=== PATIENT | female | born 1950 | race Caucasian/White ===

== ENCOUNTER 2020-12-28 03:25 | Inpatient (IN) | payer BC, MEDICAID, MEDICARE ==
[~2020-12-28] VITALS: Ht 170.2 cm; Wt 73.1 kg
[2020-12-28 06:17] LABS: Basophils # (auto) 0 10 ^3/uL (0-0.2); Basophils % (auto) 0.6 % (0.0-2.0); Eosinophils # (auto) 0.2 10 ^3/uL (0-0.8); Eosinophils % (auto) 2.8 % (0.0-7.0); Hematocrit 36.1 % (36.0-46.0); Hemoglobin 12.6 g/dL (12.2-16.2); Lymphocytes # (auto) 0.3 10 ^3/uL (0.4-5.4); Lymphocytes % (auto) 5.6 % (10.0-50.0); Mean Corpuscular Hemoglobin 34.8 pg (28.0-32.0); Mean Corpuscular Hgb Conc. 34.9 g/dL (32.0-36.0); Mean Corpuscular Volume 99.9 fL (80.0-100.0); Monocytes # (auto) 0.3 10 ^3/uL (0-1.3); Monocytes % (auto) 4.9 % (0.0-12.0); Neutrophils # (auto) 5.2 10 ^3/uL (1.6-8.6); Neutrophils % (auto) 86.1 % (37.0-80.0); Red Blood Cells 3.61 10^6/uL (4.0-5.20); Red Cell Distribution Width 13.5 % (11.8-14.3)
[2020-12-28 06:28] LABS: INR 0.99 (0.9-1.15)
[2020-12-28 06:34] LABS: Albumin 3.5 g/dL (3.4-5.0); BUN/Creatinine Ratio 26.4; Bilirubin, Total 0.3 mg/dL (0.2-1.0); Calcium 8.5 mg/dL (8.5-10.1); Magnesium 2.5 mg/dL (1.6-2.6); Total Protein 6.6 g/dL (6.4-8.2)
[2020-12-28] MEDS ORDERED: ONDANSETRON HCL 4 MG/2 ML VIAL IV ONE (06:45)
[2020-12-28] MEDS ORDERED: fentaNYL CITRATE 100 MCG/2 ML VL IV ONE (06:45)
[2020-12-28] MEDS ORDERED: SODIUM CHLORIDE 0.9% 1,000 ML IV ONE (07:00)
[2020-12-28] MEDS: SODIUM CHLORIDE 0.9% 1,000 ML IV SCH ×2 (09:30→19:30)
[2020-12-28] MEDS ORDERED: LACTULOSE 20Gm/30ML SOLN PO PRN (09:30)
[2020-12-28] MEDS ORDERED: ACETAMINOPHEN 500 MG TAB PO PRN (09:30)
[2020-12-28] MEDS ORDERED: TEMAZEPAM 15 MG CAP PO PRN (09:30)
[2020-12-28] MEDS ORDERED: PROMETHAZINE HCL 25 MG/ML 1ML IV PRN (09:30)
[2020-12-28] MEDS: FAMOTIDINE 20 MG TAB PO SCH (10:00)
[2020-12-28] MEDS: traMADol HCL 50 MG TAB PO PRN ×2 (10:35→21:41)
[2020-12-28 10:59] LABS: Urine Bacteria NONE SEEN /hpf (None Seen); Urine Blood Negative /uL (Negative); Urine Mucus FEW (None Seen); Urine Specific Gravity 1.021 (1.001-1.035); Urine WBC 3 /hpf (0 - 5)
[2020-12-28 20:00] VITALS: BP 153/90
[2020-12-28 22:00] VITALS: BP 153/90
[2020-12-29] VITALS (14 sets, daily range): BP systolic 106–163; BP diastolic 55–96
[2020-12-29] MEDS: SODIUM CHLORIDE 0.9% 1,000 ML IV SCH ×2 (01:04→15:03)
[2020-12-29] MEDS: traMADol HCL 50 MG TAB PO PRN (04:16)
[2020-12-29] MEDS ORDERED: ceFAZolin 1GM/50ML 100 ML IV ONE (08:10)
[2020-12-29] MEDS ORDERED: BUPIVACAINE 0.5% MPF INJ 30ML SDV IJ ONE (08:55)
[2020-12-29] MEDS ORDERED: MORPHINE SULF PF 2 MG/2 ML SYRG ONE (09:09)
[2020-12-29] MEDS ORDERED: ONDANSETRON HCL 4 MG/2 ML VIAL ONE (09:09)
[2020-12-29] MEDS ORDERED: SODIUM CHLORIDE LOCK 10 ML ONE (09:09)
[2020-12-29] MEDS ORDERED: MIDAZOLAM HCL 2MG/2ML 2ml VIAL (1mg/ml) ONE (09:09)
[2020-12-29] MEDS ORDERED: PROPOFOL 10 MG/ML 20 ML IV ONE (09:09)
[2020-12-29] MEDS ORDERED: fentaNYL CITRATE 100 MCG/2 ML VL ONE (09:09)
[2020-12-29] MEDS ORDERED: DexAMETHasone SOD PHOS 10MG/1ML VIAL INJ ONE (09:09)
[2020-12-29] MEDS ORDERED: BUPIVACAINE 0.5% P/F INJ 10 ML VIAL ONE (09:14)
[2020-12-29] MEDS ORDERED: BUPIVACAINE/DEXTROSE MPF 0.75% 2 ML AMP IT ONE (09:37)
[2020-12-29] MEDS: FAMOTIDINE 20 MG TAB PO SCH (10:00)
[2020-12-29] MEDS ORDERED: hydrALAZINE HCL 20 MG/ML VL IV PRN (12:15)
[2020-12-29] MEDS ORDERED: HYDROmorphone HCL 2 MG/ML VL IV PRN (13:30)
[2020-12-29] MEDS ORDERED: NALOXONE HCL 0.4 MG/ML VIAL IV PRN (13:30)
[2020-12-29] MEDS ORDERED: MORPHINE SULFATE 4 MG/ML SYR/VIAL IV PRN (13:30)
[2020-12-29] MEDS ORDERED: diphenhdrAMINE HCL 50 MG/1 ML VL IV PRN (13:30)
[2020-12-29] MEDS ORDERED: ONDANSETRON HCL 4 MG/2 ML VIAL IV PRN (13:30)
[2020-12-29] MEDS ORDERED: LACTATED RINGER'S 1,000 ML IV ONE (14:30)
[2020-12-29] MEDS: ceFAZolin 1GM/50ML 50 ML IV SCH (21:54)
[2020-12-30] VITALS (17 sets, daily range): BP systolic 101–141; BP diastolic 52–81
[2020-12-30] MEDS: SODIUM CHLORIDE 0.9% 1,000 ML IV SCH ×2 (01:30→11:58)
[2020-12-30] MEDS: ceFAZolin 1GM/50ML 50 ML IV SCH (05:51)
[2020-12-30 06:05] LABS: Basophils # (auto) 0 10 ^3/uL (0-0.2); Basophils % (auto) 0.1 % (0.0-2.0); Eosinophils # (auto) 0 10 ^3/uL (0-0.8); Lymphocytes # (auto) 0.3 10 ^3/uL (0.4-5.4); Monocytes # (auto) 0.5 10 ^3/uL (0-1.3); Red Cell Distribution Width 13.6 % (11.8-14.3); White Blood Cell 5.7 10^3/uL (4.4-10.8)
[2020-12-30 06:07] LABS: Hematocrit 32.7 % (36.0-46.0); Hemoglobin 11.4 g/dL (12.2-16.2); Lymphocytes % (auto) 5.1 % (10.0-50.0); Mean Corpuscular Hemoglobin 34.5 pg (28.0-32.0); Mean Corpuscular Hgb Conc. 34.7 g/dL (32.0-36.0); Mean Corpuscular Volume 99.3 fL (80.0-100.0); Monocytes % (auto) 9.3 % (0.0-12.0); Neutrophils # (auto) 4.8 10 ^3/uL (1.6-8.6); Neutrophils % (auto) 85.5 % (37.0-80.0); Nucleated Red Blood Cells % 0.1 %; Red Blood Cells 3.29 10^6/uL (4.0-5.20)
[2020-12-30 06:27] LABS: BUN/Creatinine Ratio 26.3; Potassium 4.3 mmol/L (3.5-5.1)
[2020-12-30] MEDS: FAMOTIDINE 20 MG TAB PO SCH (09:35)
[2020-12-30] MEDS: HYDROcodone-ACET 5/325MG TAB PO PRN ×2 (09:35→22:24)
[2020-12-30] MEDS: MORPHINE SULFATE INJECTION 2 MG/ML SYRG IV PRN ×2 (15:08→22:23)
[2020-12-31] MEDS: SODIUM CHLORIDE 0.9% 1,000 ML IV SCH (01:49)
[2020-12-31 04:55] VITALS: BP 128/62
[2020-12-31] MEDS: HYDROcodone-ACET 5/325MG TAB PO PRN ×2 (06:03→21:03)
[2020-12-31 08:34] VITALS: BP 117/63
[2020-12-31] MEDS: FAMOTIDINE 20 MG TAB PO SCH (09:07)
[2020-12-31 13:00] VITALS: BP 135/79
[2020-12-31] MEDS: MORPHINE SULFATE INJECTION 2 MG/ML SYRG IV PRN (14:10)
[2020-12-31 16:34] VITALS: BP 133/85
[2020-12-31] MEDS ORDERED: cefTRIAXone 1GM/50ML D5W 50 ML IV ONE (18:00)
[2020-12-31 22:00] VITALS: BP 144/67
[2021-01-01 05:00] VITALS: BP 121/70
[2021-01-01] MEDS: HYDROcodone-ACET 5/325MG TAB PO PRN (05:53)
[2021-01-01 08:00] VITALS: BP 122/63
[2021-01-01] MEDS ORDERED: cefTRIAXone 1GM/50ML D5W 50 ML IV SCH (09:00)
[2021-01-01] MEDS: FAMOTIDINE 20 MG TAB PO SCH (10:06)
[2021-01-01 12:00] VITALS: BP 113/50
[2021-01-01 16:00] VITALS: BP 137/56
[2021-01-01 16:12] VITALS: BP 113/50
[2021-01-01 17:33] VITALS: BP 137/56
== END 2021-01-01 19:56 | DRG 482 ==
LOC: EDBD 03:25 → ER 03:25 → OVERFLOW 09:27 → WEST WING 18:30
PROVIDERS: ADMIT Internal Medicine; ATTEND Internal Medicine
PROC: 0QS806Z Reposition Right Femoral Shaft with Intramedullary Internal Fixation Device, Open Approach (ICD-10-PCS; principal; 2020-12-29 10:24)
DX: S72.141A Displaced intertrochanteric fracture of right femur, initial encounter for closed fracture (principal); E78.5 Hyperlipidemia, unspecified; F12.90 Cannabis use, unspecified, uncomplicated; I10 Essential (primary) hypertension; W01.0XXA Fall on same level from slipping, tripping and stumbling without subsequent striking against object, initial encounter; Z20.822 Contact with and (suspected) exposure to COVID-19; Z80.0 Family history of malignant neoplasm of digestive organs; Z80.1 Family history of malignant neoplasm of trachea, bronchus and lung; Z80.3 Family history of malignant neoplasm of breast; Z80.41 Family history of malignant neoplasm of ovary; Z80.8 Family history of malignant neoplasm of other organs or systems; Z81.8 Family history of other mental and behavioral disorders; Z82.0 Family history of epilepsy and other diseases of the nervous system; Z82.3 Family history of stroke; Z82.49 Family history of ischemic heart disease and other diseases of the circulatory system; Z82.5 Family history of asthma and other chronic lower respiratory diseases; Z82.62 Family history of osteoporosis; Z83.3 Family history of diabetes mellitus; Z85.048 Personal history of other malignant neoplasm of rectum, rectosigmoid junction, and anus; Z85.3 Personal history of malignant neoplasm of breast; Z90.13 Acquired absence of bilateral breasts and nipples; Z92.21 Personal history of antineoplastic chemotherapy; Z92.3 Personal history of irradiation; Y93.89 Activity, other specified; Y92.89 Other specified places as the place of occurrence of the external cause; Y99.8 Other external cause status
CPT/HCPCS: 36415; 71045; 72170; 73502; 76000; 76642; 80048; 80053; 81001; 83735; 84484; 85025; 85610; 86850; 86900; 86901; 87040; 87086; 87426; 93306; 96361; 96374; 96375; 97116; 97163; 97530; A4565; C1713; G0378; J0690; J0696; J1100; J2250; J2405; J2704; J3490